=== PATIENT | female | born 1955 | race Caucasian/White ===

== ENCOUNTER 2023-04-18 06:08 | Inpatient (IN) | payer MEDICARE, OTHER ==
[~2023-04-18] VITALS: Ht 157.5 cm; Wt 73.9 kg
[2023-04-18] MEDS ORDERED: VANCOMYCIN 1 GM VIAL ONE (06:56)
[2023-04-18] MEDS ORDERED: ANESTHESIA TRAY IN PYXIS 1 EA TRAY MC ONE (06:56)
[2023-04-18] MEDS ORDERED: LIDOCAINE 2%-EPI 1:100,000 30 ML VIAL ONE (06:56)
[2023-04-18] MEDS ORDERED: dexaMETHasone SOD PHOSPHATE 2 ML ONE (06:56)
[2023-04-18] MEDS ORDERED: FENTANYL PF 250MCG/5ML AMPUL ONE (07:11)
[2023-04-18] MEDS ORDERED: ROCURONIUM BROMIDE 50 MG/5 ML ONE ×2 (07:12→07:13)
[2023-04-18] MEDS ORDERED: LABETALOL HCL IV 100MG VIAL ONE (07:45)
[2023-04-18] MEDS ORDERED: FENTANYL PF 100MCG/2ML AMPUL ONE (09:55)
[2023-04-18 10:40] VITALS: BP 139/79; TEMP 98.1
[2023-04-18] MEDS: ONDANSETRON HCL/PF 4 MG/2 ML VIAL IVP PRN (11:18)
[2023-04-18] MEDS ORDERED: IV NS 0.9% 1,000 ML BAG IV PRN (11:30)
[2023-04-18] MEDS: IV NS 0.9% 1,000 ML IV PRN (11:43)
[2023-04-18] MEDS: HYDROMORPHONE 1 MG/1 ML DISP.SYRIN IV PRN (12:04)
[2023-04-18] MEDS ORDERED: LOSA1TAB39 PO (14:10)
[2023-04-18] MEDS ORDERED: CYCL10TA9 PO (14:10)
[2023-04-18] MEDS ORDERED: SUMA50TA PO (14:10)
[2023-04-18] MEDS ORDERED: ERGO500093 PO (14:10)
[2023-04-18] MEDS ORDERED: IBUP-1955 PO (14:10)
[2023-04-18] MEDS ORDERED: ASPI-1420 PO (14:10)
[2023-04-18] MEDS ORDERED: ATOR40TA PO (14:10)
[2023-04-18] MEDS ORDERED: AMLO10TA4 PO (14:10)
[2023-04-18] MEDS ORDERED: CLON0.1T PO (14:10)
[2023-04-18] MEDS ORDERED: DULA0.75 SQ (14:10)
[2023-04-18] MEDS ORDERED: GABA300C PO (14:10)
[2023-04-18] MEDS ORDERED: SERT50TA PO (14:10)
[2023-04-18] MEDS ORDERED: OMEP40CA21 PO (14:10)
[2023-04-18] MEDS ORDERED: METF-440 PO (14:10)
[2023-04-18] MEDS ORDERED: IPRA12.9 IH (14:10)
[2023-04-18] MEDS ORDERED: EZET10TA15 PO (14:10)
[2023-04-18] MEDS ORDERED: ATEN100T PO (14:10)
[2023-04-18] MEDS ORDERED: ALBU18HF2 IH (14:10)
[2023-04-18 16:00] VITALS: BP 142/88; TEMP 98.1; O2SAT 95
[2023-04-18] MEDS ORDERED: ERGOCALCIFEROL (VITAMIN D 2) 50,000 UNIT CAPSULE PO SCH (16:00)
[2023-04-18] MEDS ORDERED: CLONIDINE HCL 0.1 MG TABLET PO PRN (16:00)
[2023-04-18] MEDS ORDERED: SUMATRIPTAN SUCCINATE 25 MG TABLET PO PRN (16:30)
[2023-04-18] MEDS ORDERED: DEXTROSE 50%-WATER 50 ML DISP.SYRIN IV PRN (16:30)
[2023-04-18] MEDS ORDERED: ALBUTEROL FS 2.5 MG/3 ML VIAL.NEB NEB PRN (16:30)
[2023-04-18] MEDS: BLOOD SUGAR DIAGNOSTIC 1 EACH STRIP IN SCH (17:19)
[2023-04-18] MEDS: MAG HYDROX/AL HYDROX/SIMETH 30 ML UDC PO PRN (21:06)
[2023-04-18] MEDS: VANCOMYCIN 1 GM in IV D5W 250ml IV SCH (21:26)
[2023-04-18] MEDS: INSULIN REGULAR, HUMAN 100 UNIT/ML 3 ML VIAL SQ PRN (21:44)
[2023-04-19 08:00] VITALS: BP 169/88; TEMP 98.1; O2SAT 96
[2023-04-19] MEDS: LOSARTAN/HCTZ 50-12.5MG/ 1 EA TABLET PO SCH (08:36)
[2023-04-19] MEDS: AMLODIPINE BESYLATE 10 MG TABLET PO SCH (08:37)
[2023-04-19] MEDS: ATENOLOL 50 MG TABLET PO SCH (08:37)
[2023-04-19] MEDS: PANTOPRAZOLE 40 MG TABLET.DR PO SCH (08:39)
[2023-04-19] MEDS: ASPIRIN EC 81 MG TABLET.DR PO SCH (08:39)
[2023-04-19] MEDS: GABAPENTIN 300 MG CAPSULE PO SCH (08:39)
[2023-04-19] MEDS: ATORVASTATIN 40 MG TABLET PO SCH (08:39)
[2023-04-19] MEDS: EZETIMIBE 10 MG TABLET PO SCH (08:49)
[2023-04-19] MEDS: CYCLOBENZAPRINE 10 MG TABLET PO SCH (08:49)
[2023-04-19] MEDS: SERTRALINE HCL 50 MG TABLET PO SCH (08:50)
[2023-04-19] MEDS ORDERED: IPRATROPIUM NEB FS 0.5 MG/2.5 ML AMPUL.NEB NEB PRN (09:00)
[2023-04-19 12:00] VITALS: BP 117/89; TEMP 98.8; O2SAT 95
== END 2023-04-19 14:00 | disposition home or self-care (01) | DRG 141 ==
LOC: DS 06:08 → MED 06:10 → TELE 10:32
PROVIDERS: ADMIT Nurse Practitioner Acute Care; ATTEND Nurse Practitioner Acute Care
PROC: 0NBT0ZX Excision of Right Mandible, Open Approach, Diagnostic (ICD-10-PCS; principal; 2023-04-18)
PROC: 0NSR04Z Reposition Maxilla with Internal Fixation Device, Open Approach (ICD-10-PCS; 2023-04-18)
PROC: 0NUR07Z Supplement Maxilla with Autologous Tissue Substitute, Open Approach (ICD-10-PCS; 2023-04-18)
PROC: 0NST0ZZ Reposition Right Mandible, Open Approach (ICD-10-PCS; 2023-04-18)
PROC: 0NUT07Z Supplement Right Mandible with Autologous Tissue Substitute, Open Approach (ICD-10-PCS; 2023-04-18)
DX: S02.40CA Maxillary fracture, right side, initial encounter for closed fracture (principal); M87.9 Osteonecrosis, unspecified; M27.2 Inflammatory conditions of jaws; S02.609A Fracture of mandible, unspecified, initial encounter for closed fracture; I10 Essential (primary) hypertension; J45.909 Unspecified asthma, uncomplicated; E78.5 Hyperlipidemia, unspecified; Z79.85 Long-term (current) use of injectable non-insulin antidiabetic drugs; Z79.51 Long term (current) use of inhaled steroids; Z79.82 Long term (current) use of aspirin; Z79.84 Long term (current) use of oral hypoglycemic drugs; Z79.899 Other long term (current) drug therapy; K21.9 Gastro-esophageal reflux disease without esophagitis; Z68.29 Body mass index [BMI] 29.0-29.9, adult; Z88.0 Allergy status to penicillin; E66.9 Obesity, unspecified; F17.210 Nicotine dependence, cigarettes, uncomplicated; F32.A Depression, unspecified; X58.XXXA Exposure to other specified factors, initial encounter; Y92.9 Unspecified place or not applicable; D16.4 Benign neoplasm of bones of skull and face; D16.5 Benign neoplasm of lower jaw bone; T17.0XXA Foreign body in nasal sinus, initial encounter
CPT/HCPCS: 82962-TC; 87081-TC; 88305-TC; 88311-TC; A4223; C1713; G0378; J0690; J1100; J1170; J1815; J2310; J2405; J2704; J3010; J3370; J3490; J7030; J7060

== ENCOUNTER 2023-09-03 11:48 | Outpatient (CLI) | payer MEDICARE, OTHER ==
[~2023-09-03 11:48] MED LIST: ALBU18HF2 IH; AMLO10TA4 PO; ASPI-1420 PO; ATEN100T PO; ATOR40TA PO; CLON0.1T PO; CYCL10TA9 PO; DULA0.75 SQ; ERGO500093 PO; EZET10TA15 PO; GABA300C PO; IBUP-1955 PO; IPRA12.9 IH; LOSA1TAB39 PO; METF-440 PO; OMEP40CA21 PO; SERT50TA PO; SUMA50TA PO
[2023-09-03 12:41] LABS: APPEARANCE,URINE CLEAR (CLEAR); BILIRUBIN,URINE NEGATIVE (NEGATIVE); BLOOD, URINE NEGATIVE Ery/uL (NEGATIVE); COLOR,URINE YELLOW (YELLOW); KETONES,URINE NEGATIVE (NEGATIVE); LEUKOCYTE ESTERASE ,URINE TRACE (NEGATIVE); NITRITE, URINE NEGATIVE (NEGATIVE); PROTEIN,URINE TRACE mg/dl (NEGATIVE); UGLUCOSE NEGATIVE (NEGATIVE); UROBILINOGEN,URINE 0.2 EU/dL (0.2)
[2023-09-03 12:48] LABS: PROTHROMBIN TIME 10.6 SECS (9.2-11.1)
[2023-09-03 12:55] LABS: ALBUMIN 3.3 g/dL (3.4-5.0); BILIRUBIN,TOTAL 0.4 mg/dL (0.2-1.0); CALCIUM, SERUM 8.8 mg/dL (8.5-10.1); CREATININE 0.7 mg/dL (0.6-1.3); POTASSIUM 3.8 mmol/L (3.5-5.1); TOTAL PROTEIN, SERUM 8.3 g/dL (6.4-8.2)
[2023-09-03 13:06] LABS: THYROID STIMULATING HORMONE 1.17 uIU/mL (0.358-3.74)
[2023-09-03 13:29] LABS: ADD URINE CULTURE NO; BACTERIA,URINE Few /HPF (None Seen); RBC,URINE 0-2 /HPF (0-2); SQUAMOUS EPITHELIAL CELL,UR Few /HPF (None Seen)
[2023-09-03 13:46] LABS: BASOPHILS # (AUTO) 0.1 K/uL (0.0-0.2); BASOPHILS % (AUTO) 0.9 % (0.0-2.0); EOSINOPHILS # (AUTO) 0.6 K/uL (0.0-0.7); EOSINOPHILS % (AUTO) 6.3 % (0.0-6.0); HEMATOCRIT 37 % (33-45); HEMOGLOBIN 12.5 g/dL (11.5-14.8); LYMPHOCYTES # (AUTO) 2.5 K/uL (0.8-4.8); LYMPHOCYTES % (AUTO) 27.1 % (20.0-44.0); MEAN CORPUSCULAR HEMOGLOBIN 29 PG (26.0-33.0); MEAN CORPUSCULAR HGB CONC 34 g/dl (31.0-36.0); MEAN CORPUSCULAR VOLUME 85 fL (82-100); MONOCYTES # (AUTO) 0.7 K/uL (0.1-1.30); MONOCYTES % (AUTO) 7.1 % (2.0-12.0); NEUTROPHILS # (AUTO) 5.5 K/uL (1.8-8.9); NEUTROPHILS % (AUTO) 58.6 % (43.0-81.0); PLATELET COUNT (AUTO) 435 K/uL (150-450); RED BLOOD CELL COUNT(AUTO) 4.32 MIL/uL (4.0-5.2); WHITE BLOOD COUNT (AUTO) 9.4 K/uL (4.3-11.0)
== END 2023-09-03 23:59 | disposition home or self-care (01) ==
LOC: LAB 11:48
PROVIDERS: ATTEND Internal Medicine Interventional Cardiology
DX: Z01.812 Encounter for preprocedural laboratory examination (principal); I10 Essential (primary) hypertension; D68.9 Coagulation defect, unspecified; E11.9 Type 2 diabetes mellitus without complications; E78.5 Hyperlipidemia, unspecified; E03.9 Hypothyroidism, unspecified; Z79.899 Other long term (current) drug therapy
CPT/HCPCS: 36415; 80053-TC; 80061-TC; 81001; 84439-TC; 84443-TC; 85025-TC; 85610-TC; 87086-TC

== ENCOUNTER 2023-09-05 08:06 | Inpatient (IN) | payer MEDICARE, OTHER ==
[~2023-09-05] VITALS: Ht 157.5 cm; Wt 86.2 kg
[~2023-09-05 08:06] MED LIST changes: +FENTANYL PF 250MCG/5ML AMPUL ONE; +ROCURONIUM BROMIDE 50 MG/5 ML ONE
[2023-09-05] MEDS ORDERED: LIDOCAINE 2%-EPI 1:100,000 30 ML VIAL ONE (10:25)
[2023-09-05] MEDS ORDERED: dexaMETHasone SOD PHOSPHATE 1 ML ONE (10:25)
[2023-09-05] MEDS ORDERED: OXYMETAZOLINE HCL NASAL SPRAY 30 ML BOTTLE NS ONE (10:25)
[2023-09-05] MEDS ORDERED: VANCOMYCIN 1 GM VIAL ONE (10:25)
[2023-09-05 13:00] VITALS: BP 151/93; TEMP 97.4; O2SAT 95
[2023-09-05] MEDS ORDERED: hydrALAZINE HCL IV 20 MG VIAL ONE (13:06)
[2023-09-05 13:30] VITALS: BP 151/93; TEMP 97.4; O2SAT 95
[2023-09-05] MEDS ORDERED: METO100C PO (14:00)
[2023-09-05] MEDS ORDERED: NIFE90TA61 PO (14:00)
[2023-09-05] MEDS ORDERED: SERT100T12 PO (14:00)
[2023-09-05] MEDS ORDERED: ISOS60TA72 PO (14:00)
[2023-09-05] MEDS ORDERED: ACETAMINOPHEN 325 MG TABLET PO PRN (14:00)
[2023-09-05] MEDS ORDERED: MINO10TA PO (14:00)
[2023-09-05] MEDS ORDERED: HYDR25TA4 PO (14:00)
[2023-09-05] MEDS ORDERED: VALS1TAB6 PO (14:00)
[2023-09-05] MEDS: ONDANSETRON HCL/PF 4 MG/2 ML VIAL IVP PRN (14:05)
[2023-09-05] MEDS: HYDROMORPHONE 1 MG/1 ML DISP.SYRIN IV PRN (14:05)
[2023-09-05 16:00] VITALS: BP 142/90; TEMP 97.5; O2SAT 97
[2023-09-05] MEDS: IV NS 0.9% 1,000 ML IV PRN (16:16)
[2023-09-05 20:00] VITALS: BP 158/78; TEMP 97.9; O2SAT 97
[2023-09-05] MEDS: VANCOMYCIN 1 GM in IV D5W 250ml IV SCH (21:51)
[2023-09-05] MEDS: MAG HYDROX/AL HYDROX/SIMETH 30 ML UDC PO PRN (21:51)
[2023-09-06 08:00] VITALS: BP 178/90; TEMP 97.6; O2SAT 98
[2023-09-06] MEDS: ISOSORBIDE DINITRATE (20MG) 20 MG TABLET PO SCH (08:40)
[2023-09-06 08:41] VITALS: BP 178/90
[2023-09-06] MEDS: hydrALAZINE HCL 50 MG TABLET PO SCH (08:41)
[2023-09-08 13:09] LABS: *SPE A/G RATIO 0.9 (0.7-1.7); *SPE ALBUMIN 3.4 g/dL (2.9-4.4); *SPE ALPHA-1-GLOBULIN 0.3 g/dL (0.0-0.4); *SPE ALPHA-2-GLOBULIN 0.9 g/dL (0.4-1.0); *SPE BETA GLOBULIN 1.3 g/dL (0.7-1.3); *SPE M-SPIKE Not Observed g/dL (Not Observed); *SPE PROTEIN TOTAL 7.4 g/dL (6.0-8.5); *SPEGAMMA GLOBULIN 1.5 g/dL (0.4-1.8)
== END 2023-09-06 15:00 | disposition home or self-care (01) | DRG 496 ==
LOC: DS 08:06 → MED 13:28
PROVIDERS: ADMIT Nurse Practitioner Acute Care; ATTEND Nurse Practitioner Acute Care
PROC: 0NPW04Z Removal of Internal Fixation Device from Facial Bone, Open Approach (ICD-10-PCS; principal; 2023-09-05)
PROC: 0NPW07Z Removal of Autologous Tissue Substitute from Facial Bone, Open Approach (ICD-10-PCS; 2023-09-05)
PROC: 0NHV04Z Insertion of Internal Fixation Device into Left Mandible, Open Approach (ICD-10-PCS; 2023-09-05)
PROC: 0NHR04Z Insertion of Internal Fixation Device into Maxilla, Open Approach (ICD-10-PCS; 2023-09-05)
PROC: 0NUT0JZ Supplement Right Mandible with Synthetic Substitute, Open Approach (ICD-10-PCS; 2023-09-05)
PROC: 0NBR0ZZ Excision of Maxilla, Open Approach (ICD-10-PCS; 2023-09-05)
PROC: 0NBV0ZX Excision of Left Mandible, Open Approach, Diagnostic (ICD-10-PCS; 2023-09-05)
DX: S02.40CK Maxillary fracture, right side, subsequent encounter for fracture with nonunion (principal); T84.69XA Infection and inflammatory reaction due to internal fixation device of other site, initial encounter; T86.831 Bone graft failure; S02.40DK Maxillary fracture, left side, subsequent encounter for fracture with nonunion; S02.609K Fracture of mandible, unspecified, subsequent encounter for fracture with nonunion; K12.30 Oral mucositis (ulcerative), unspecified; Y83.8 Other surgical procedures as the cause of abnormal reaction of the patient, or of later complication, without mention of misadventure at the time of the procedure; Y92.009 Unspecified place in unspecified non-institutional (private) residence as the place of occurrence of the external cause; I10 Essential (primary) hypertension; J45.909 Unspecified asthma, uncomplicated; E78.5 Hyperlipidemia, unspecified; E11.9 Type 2 diabetes mellitus without complications; F17.200 Nicotine dependence, unspecified, uncomplicated; Z79.85 Long-term (current) use of injectable non-insulin antidiabetic drugs; Z79.51 Long term (current) use of inhaled steroids; Z79.82 Long term (current) use of aspirin; Z79.899 Other long term (current) drug therapy; Z79.84 Long term (current) use of oral hypoglycemic drugs; Z88.0 Allergy status to penicillin; L68.0 Hirsutism; T46.7X5A Adverse effect of peripheral vasodilators, initial encounter; Y92.9 Unspecified place or not applicable; K21.9 Gastro-esophageal reflux disease without esophagitis; F32.A Depression, unspecified; Y83.2 Surgical operation with anastomosis, bypass or graft as the cause of abnormal reaction of the patient, or of later complication, without mention of misadventure at the time of the procedure; X58.XXXD Exposure to other specified factors, subsequent encounter
CPT/HCPCS: 36415; 80053-TC; 80061-TC; 81001; 82962-TC; 84155; 84165; 84439-TC; 84443-TC; 85025-TC; 85610-TC; 87086-TC; A4223; C1713; G0378; J0330; J0360; J0690; J1100; J1170; J2405; J2704; J3010; J3370; J3490; J7030; J7060